=== PATIENT | male | born 1960 | race Caucasian/White ===

== ENCOUNTER 2019-07-10 17:11 | Emergency (ER) | payer BC ==
[2019-07-10] MEDS: GI Cocktail Oral Solution 30 ML PO ONE (18:06)
--- NOTE | 2019-07-11 01:13 | ER ---
REASON FOR EMERGENCY ROOM VISIT: Nausea and lightheadedness. HISTORY OF PRESENT ILLNESS: This 58-year-old gentleman came into the emergency room after feeling nausea with flushing and lightheadedness throughout most of the afternoon. At approximately 2 p.m. while ice-fishing, he noted some nausea and flushing, followed by some lightheadedness and shakiness. He went outside to get some fresh air and stated that his arms felt cold, but he was only wearing a T-shirt, and it was below 0. He subsequently came back inside and took his blood pressure while in the ice-house, as he had a home blood pressure monitor with him. His blood pressure was in the 150s over 80s. Because of his persistent symptoms, he decided to take a sublingual nitroglycerin even though he was not having any chest pain, arm pain, jaw pain, or back pain. He took his blood pressure 5 minutes later, and it was now 121/72. He has continued to feel somewhat shaky. He checked his blood glucose as he is an insulin-dependent diabetic, and it was 132. His nausea gradually subsided. He did not have any vomiting. He did not have diaphoresis or chest pain nor did he have any shortness of breath. He has had a mild runny nose lately, but nothing particularly out of the ordinary for him. What is noteworthy is that he does have a history of coronary artery disease with an OR 7 years ago and a stenting of his left main coronary artery by his description. The patient resides in [place], [place], and he is here with a friend on an ice-fishing vacation. He last saw his physician approximately 6 months ago, and it has been perhaps 3 years or so since he has actually had a stress test. He has not had episodes of chest pain as of late and actually none since he had his stent placed 7 years ago. Other than his nausea, he has felt somewhat gassy, but he has not had any other GI symptoms like diarrhea or constipation. His appetite is somewhat diminished today. He denies any fever or chills. He does not have any urinary symptoms. PAST MEDICAL HISTORY: 1. Coronary artery disease with stenting, (see above). 2. Diabetes mellitus x30 years, insulin dependent. 3. Sleep apnea. He uses a CPAP. 4. Past history of smoking. He quit 7 years ago. 5. Lumbar laminectomy. 6. Appendectomy. 7. Cholecystectomy. MEDICATIONS: Reviewed. Please see electronic medical record. They include: 1. Insulin. 2. Diclofenac. 3. Lisinopril. 4. Oxycodone 5/325 p.r.n. 5. Metoprolol. 6. Aspirin. ALLERGIES: TO CIPROFLOXACIN AND STATINS. REVIEW OF SYSTEMS: All pertinent positives and negatives as listed in the HPI. PHYSICAL EXAMINATION: GENERAL: He is an obese, pleasant man, who is alert and in no acute distress. He does not appear overly anxious. VITAL SIGNS: Blood pressure 146/69, pulse 81, respiratory rate 18, O2 sats 100% on room air. He is afebrile. HEENT: Head is normocephalic. No scleral icterus or conjunctivitis. Oropharynx is normal. NECK: Supple. No JVD is noted. No bruits. No adenopathy. CHEST: Clear to auscultation with good air exchange bilaterally and no wheezes, rhonchi, or rales. CARDIAC: Regular rate without murmur. No rub. ABDOMEN: Obese, soft, nontender. No organomegaly. EXTREMITIES: He has mild ankle edema. Normal pulses. NEUROLOGIC: He moves all 4 extremities equally well with normal strength. He has no numbness. DIAGNOSTIC DATA: His 12-lead EKG x2 was normal except he has some Q-waves in lead III and in the inferior leads. Otherwise, no acute changes. CBC was within normal limits. A CMP is unremarkable except he has got a borderline elevation and total bilirubin at 1.6. His renal function is normal. His blood glucose is 132. His troponin was less than 0.017 x2. Urinalysis was normal. A chest x-ray shows no active pulmonary disease. FURTHER EMERGENCY ROOM COURSE: We decided to keep him and recheck his troponin and his 12- lead EKG and observe him for 3 hours. We did this, and he remained asymptomatic since shortly after he arrived here. He did not experience any chest pain or any significant symptoms. His repeat troponin was normal, and there was no change in his EKG. He did receive a GI cocktail, and he thinks that may have helped his symptoms. IMPRESSION: Nausea, lightheadedness, and shakiness, of uncertain etiology. PLAN: Should he experience any disturbing symptoms or certainly any chest pain, he should return for recheck this evening. I felt quite comfortable that his symptoms are not cardiac in origin. He understands. All questions were answered. SERGIO/STEFANO /[id number]
--- NOTE | 2019-07-11 09:38 | CR ---
DATE OF SERVICE: 07/10/19 CLINICAL DATA: Nausea. AP CHEST: No priors. The patient has taken a poor inspiration. The heart size is normal. The lungs are clear. No pneumothorax. No pleural effusions. No evidence of acute intrathoracic disease. [id number] [facility]
== END 2019-07-10 21:29 | disposition home or self-care (01) ==
LOC: LB.ED 17:11
DX: R42 Dizziness and giddiness (principal); R11.0 Nausea; R25.1 Tremor, unspecified; E11.9 Type 2 diabetes mellitus without complications
CPT/HCPCS: 36415; 71045; 80053; 81003; 84484; 85025; 93005; 99284-25; A9270-GY